=== PATIENT | male | born 2000 | race Two or more races ===

== ENCOUNTER 2025-07-13 13:41 | Emergency (ER) | payer MEDICAID, OTHER ==
[~2025-07-13] VITALS: Ht 190.5 cm; Wt 113.7 kg
[2025-07-13 14:25] VITALS: BP 114/73; PULSE 104; RESP 16; TEMP 98.2; O2SAT 99
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
[2025-07-13] MEDS ORDERED: IBUP-1454 PO (15:04)
[2025-07-13] MEDS ORDERED: CEPH500C PO (15:04)
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
== END 2025-07-13 15:10 | disposition home or self-care (01) ==
LOC: ER 13:41
DX: S39.012A Strain of muscle, fascia and tendon of lower back, initial encounter (principal); S00.83XA Contusion of other part of head, initial encounter; S60.419A Abrasion of unspecified finger, initial encounter; S60.511A Abrasion of right hand, initial encounter; F17.210 Nicotine dependence, cigarettes, uncomplicated; Z79.1 Long term (current) use of non-steroidal anti-inflammatories (NSAID); Z79.899 Other long term (current) drug therapy; W22.01XA Walked into wall, initial encounter; Y93.89 Activity, other specified; Y92.89 Other specified places as the place of occurrence of the external cause; Y99.8 Other external cause status
CPT/HCPCS: 72100; 73130